=== PATIENT | male | born 1960 | race Caucasian/White ===

== ENCOUNTER 2020-09-15 07:57 | Outpatient (CLI) | payer OTHER ==
[~2020-09-15 07:57] MED LIST: CORGARD20 MG; MAVIK4 MG
== END 2020-09-15 08:23 | disposition home or self-care (01) ==
LOC: SONOGRAMA 07:57
PROVIDERS: ATTEND Specialist
DX: N40.2 Nodular prostate without lower urinary tract symptoms (principal); R97.20 Elevated prostate specific antigen [PSA]